=== PATIENT | female | born 1960 | race Caucasian/White ===

== ENCOUNTER 2017-04-25 21:32 | Observation (INO) | payer OTHER ==
[~2017-04-25] VITALS: Ht 167.6 cm; Wt 71.1 kg
[~2017-04-25 21:32] MED LIST: BISAC-EVAC10 MG PR; BISACODYL5 MG PO; BUTALB-APAP-CA1 EACH PO; DOCUSATE SODIU100 MG PO; FERROUS SULFAT325 MG PO; FLEXERIL10 MG PO; MAG-AL PLUS SUS30 ML PO; NEURONTIN800 MG PO; SENNA8.6 MG PO; VALIUM10 MG PO
[2017-04-25 22:35] LABS: MCH 31.8 PG (29.0-34.0); MCHC 36.4 G/DL (30.0-36.0); MCV 87.5 FL (83-99); MEAN PLAT.VOLUME 8.6 uM^3 (9.5-12.4); PLATELET COUNT 263 K/uL (156-360); RBC DIS.WIDTH-CV 12.1 % (11.8-14.6); RBC DIS.WIDTH-SD 38.6 % (39-53); RED BLOOD COUNT 3.77 M/uL (3.80-5.20); WHITE BLOOD COUNT 5.9 K/uL (4.1-10.2)
[2017-04-25 22:50] LABS: CHLORIDE 80 mEq/L (99-109); POTASSIUM 2.9 mEq/L (3.7-5.4); SODIUM 122 mEq/L (136-147)
[2017-04-25 22:52] LABS: GLUCOSE 110 mg/dL (70-99)
[2017-04-25 22:53] LABS: ANION GAP 10 MEQ/L (2-14)
[2017-04-25 22:56] LABS: GFR ESTIMATE (CALCULATED) > 59 mL/min/; UREA NITROGEN (BUN) 4 mg/dL (9-23)
[2017-04-26 00:31] LABS: ADD MIUA? YES; BILIRUBIN NEGATIVE; BLOOD NEGATIVE; COLOR STRAW ((YELLOW)); GLUCOSE (STRIP) NEGATIVE; KETONES NEGATIVE; LEUKOCYTES TRACE; NITRITE NEGATIVE; PROTEIN (STRIP) NEGATIVE; SPECIFIC GRAVITY 1.002 (1.000-1.030); UROBILINOGEN 0.2 MG/DL (0.2-1.0)
[2017-04-26 00:37] LABS: MAGNESIUM 1.9 mg/dL (1.3-2.7)
[2017-04-26 00:44] LABS: CREATINE KINASE 169 IU/L (1-294)
[2017-04-26 00:48] LABS: BACTERIA NONE SEEN /HPF; EPITHELIAL CELLS RARE /HPF; MUCUS NONE SEEN /LPF; RED BLOOD CELLS NONE SEEN /HPF (0-5); UCUL ADDED? NO
[2017-04-26 01:48] LABS: AMPHETAMINE NEGATIVE (500 ng/mL); BARBITURATES NEGATIVE (200 ng/mL); BENZODIAZEPINES PRESUMPTIVE POSITIVE (150 ng/mL); COCAINE PRESUMPTIVE POSITIVE (150 ng/mL); INTERNAL CONTROLS VALID? YES; METHADONE NEGATIVE (200 ng/mL); METHAMPHETAMINE NEGATIVE (500 ng/mL); OPIATES (MORPHINE) NEGATIVE (100 ng/mL); OXYCODONE NEGATIVE (100 ng/mL); PHENCYCLIDINE NEGATIVE (25 ng/mL); PROPOXYPHENE NEGATIVE (300 ng/mL); THC CANNABINOIDS NEGATIVE (50 ng/mL); TRICYCLIC ANTIDEPRESSANTS NEGATIVE (300 ng/mL)
[2017-04-26 01:49] LABS: ADD MEDTOX COMMENT Y
[2017-04-26 02:23] LABS: SERUM ETHYL ALCOHOL < 10 mg/dL
[2017-04-26 05:15] VITALS: BP 97/56
[2017-04-26 05:24] LABS: BENZODIAZEPINES, URINE SCREEN POSITIVE (200 ng/mL)
[2017-04-26 07:14] LABS: HEMATOCRIT 29.9 % (36.0-46.0); MCH 31.9 PG (29.0-34.0); MCHC 36.1 G/DL (30.0-36.0); MCV 88.2 FL (83-99); MEAN PLAT.VOLUME 8.9 uM^3 (9.5-12.4); PLATELET COUNT 247 K/uL (156-360); RBC DIS.WIDTH-CV 12.2 % (11.8-14.6); RBC DIS.WIDTH-SD 39.5 % (39-53); RED BLOOD COUNT 3.39 M/uL (3.80-5.20); WHITE BLOOD COUNT 4.7 K/uL (4.1-10.2)
[2017-04-26 07:34] LABS: ANION GAP 8 MEQ/L (2-14); CHLORIDE 87 MEQ/L (99-109); GFR ESTIMATE (CALCULATED) > 59 mL/min/; GLUCOSE 115 mg/dL (70-99); POTASSIUM 2.8 MEQ/L (3.7-5.4); SAMPLE HEMOLYSIS CHECK 0; SAMPLE ICTERIC CHECK 0; SAMPLE LIPEMIA CHECK 0; SODIUM 125 MEQ/L (136-147); UREA NITROGEN (BUN) 3 mg/dL (9-23)
[2017-04-26 07:37] LABS: ALKALINE PHOSPHATASE 53 IU/L (3-129); ANION GAP 8 MEQ/L (2-14); CHLORIDE 88 MEQ/L (99-109); GFR ESTIMATE (CALCULATED) > 59 mL/min/; GLUCOSE 115 mg/dL (70-99); POTASSIUM 2.8 MEQ/L (3.7-5.4); SAMPLE HEMOLYSIS CHECK 0; SAMPLE ICTERIC CHECK 0; SAMPLE LIPEMIA CHECK 0; SODIUM 126 MEQ/L (136-147); TOTAL BILIRUBIN 0.4 MG/DL (0.0-1.0); UREA NITROGEN (BUN) 3 mg/dL (9-23)
[2017-04-26 09:40] VITALS: BP 100/64
[2017-04-26] MEDS ORDERED: CONCERTA36 MG PO (09:52)
[2017-04-26] MEDS ORDERED: SYNTHROID25 MCG PO (09:52)
[2017-04-26 12:03] VITALS: BP 117/80
[2017-04-26 14:45] LABS: HEMATOCRIT 33.1 % (36.0-46.0); MCH 32.2 PG (29.0-34.0); MCV 89.5 FL (83-99); MEAN PLAT.VOLUME 9.2 uM^3 (9.5-12.4); PLATELET COUNT 262 K/uL (156-360); RBC DIS.WIDTH-CV 12.5 % (11.8-14.6); RBC DIS.WIDTH-SD 40.7 % (39-53)
[2017-04-26 15:05] LABS: ANION GAP 11 MEQ/L (2-14); CHLORIDE 89 MEQ/L (99-109); GFR ESTIMATE (CALCULATED) > 59 mL/min/; GLUCOSE 91 mg/dL (70-99); POTASSIUM 3.1 MEQ/L (3.7-5.4); SAMPLE HEMOLYSIS CHECK 0; SAMPLE ICTERIC CHECK 0; SAMPLE LIPEMIA CHECK 0; SODIUM 130 MEQ/L (136-147); UREA NITROGEN (BUN) 3 mg/dL (9-23)
[2017-04-26 15:37] VITALS: BP 92/56
[2017-04-26 19:00] VITALS: BP 95/56
[2017-04-27 04:18] VITALS: BP 82/49
[2017-04-27 07:05] LABS: ANION GAP 5 MEQ/L (2-14); GFR ESTIMATE (CALCULATED) > 59 mL/min/; GLUCOSE 112 mg/dL (70-99); SAMPLE HEMOLYSIS CHECK 0; SAMPLE ICTERIC CHECK 0; SAMPLE LIPEMIA CHECK 0; SODIUM 132 MEQ/L (136-147); UREA NITROGEN (BUN) 7 mg/dL (9-23)
[2017-04-27 07:06] LABS: CHLORIDE 100 MEQ/L (99-109); POTASSIUM 4.9 MEQ/L (3.7-5.4)
[2017-04-27 07:10] LABS: HEMATOCRIT 28.3 % (36.0-46.0); MCH 32.5 PG (29.0-34.0); MCHC 34.6 G/DL (30.0-36.0); MEAN PLAT.VOLUME 9.3 uM^3 (9.5-12.4); PLATELET COUNT 227 K/uL (156-360); RBC DIS.WIDTH-SD 44.6 % (39-53); RED BLOOD COUNT 3.02 M/uL (3.80-5.20)
[2017-04-27 07:12] LABS: MCV 93.7 FL (83-99)
[2017-04-27 08:30] VITALS: BP 103/62
[2017-04-27] MEDS ORDERED: ENDOCET 5-3251 EACH PO (12:05)
[2017-04-27] MEDS ORDERED: LIDOCAINE700 MG TD (12:05)
[2017-04-27 15:22] VITALS: BP 93/51
[2017-04-27 19:30] VITALS: BP 100/60
[2017-04-27 19:48] LABS: APPEARANCE CLEAR, COLORLESS; RED CELL AREA COUNTED 18; RED CELL COUNT 0 /MM^3 (0-1); RED CELL DILUTION 1; WBC AREA COUNTED 18; WBC DILUTION 1; WHITE CELL COUNT 7 /MM^3 (0-5); WHITE CELL RAW COUNT 12
[2017-04-27 20:02] LABS: CSF EOSINOPHILS 0 % (0-25); MONO RAW COUNT 25; MONONUCLEAR WBC'S 100 % (50-90); POLYNUCLEAR WBC'S 0 % (0-3)
[2017-04-27 23:19] VITALS: BP 110/71
[2017-04-28 03:24] VITALS: BP 90/50
[2017-04-28 05:40] VITALS: BP 121/72
[2017-04-28 09:35] VITALS: BP 111/58
[2017-04-28 11:22] VITALS: BP 109/64
[2017-04-28 15:50] VITALS: BP 121/78
[2017-04-28 19:10] VITALS: BP 124/77
[2017-04-28 22:52] LABS: POINT-OF-CARE METER ID UU13113831
[2017-04-29] VITALS (8 sets, daily range): BP systolic 95–148; BP diastolic 54–88
[2017-04-29 06:26] LABS: HEMATOCRIT 32.4 % (36.0-46.0); MCH 31.7 PG (29.0-34.0); MCHC 33.3 G/DL (30.0-36.0); MEAN PLAT.VOLUME 9.2 uM^3 (9.5-12.4); PLATELET COUNT 239 K/uL (156-360); RBC DIS.WIDTH-CV 13.1 % (11.8-14.6); RBC DIS.WIDTH-SD 45.1 % (39-53); RED BLOOD COUNT 3.41 M/uL (3.80-5.20); WHITE BLOOD COUNT 4.5 K/uL (4.1-10.2)
[2017-04-29 07:35] LABS: ANION GAP 7 MEQ/L (2-14); CHLORIDE 101 MEQ/L (99-109); GFR ESTIMATE (CALCULATED) > 59 mL/min/; GLUCOSE 96 mg/dL (70-99); POTASSIUM 5.2 MEQ/L (3.7-5.4); SAMPLE HEMOLYSIS CHECK 2; SAMPLE ICTERIC CHECK 0; SAMPLE LIPEMIA CHECK 0; SODIUM 136 MEQ/L (136-147); UREA NITROGEN (BUN) 8 mg/dL (9-23)
[2017-04-30 03:31] VITALS: BP 111/59
[2017-04-30 07:45] VITALS: BP 132/85
[2017-04-30 11:34] VITALS: BP 136/77
[2017-04-30] MEDS ORDERED: IBUPROFEN800 MG PO (11:47)
[2017-04-30 15:30] VITALS: BP 155/91
[2017-04-30] MEDS ORDERED: ENDOCET 5-3251 EACH PO (17:08)
[2017-04-30] MEDS ORDERED: LIDOCAINE700 MG TD (17:08)
[2017-05-01 22:11] LABS: Albumin, Serum 3.4 g/dL (3.5-4.9); Synthesis Rate IgG, CSF -1.2 mg/24 h (-9.9-3.3)
== END 2017-04-30 17:58 | disposition home or self-care (01) ==
LOC: EME 21:32 → EDOF 04-26 04:25 → 5WEST 04-26 04:25 → EDOF 04-26 04:25 → 5WEST 04-26 05:00
PROVIDERS: Emergency Medicine; Internal Medicine; Nurse Practitioner Adult Health; Specialist
PROC: 009U3ZX Drainage of Spinal Canal, Percutaneous Approach, Diagnostic (ICD-10-PCS; principal; 2017-04-27)
DX: M51.36 Other intervertebral disc degeneration, lumbar region (principal); G89.29 Other chronic pain; R33.9 Retention of urine, unspecified; R10.9 Unspecified abdominal pain; E87.1 Hypo-osmolality and hyponatremia; E87.6 Hypokalemia; M79.7 Fibromyalgia; G43.909 Migraine, unspecified, not intractable, without status migrainosus; F41.9 Anxiety disorder, unspecified; F32.9 Major depressive disorder, single episode, unspecified; G40.909 Epilepsy, unspecified, not intractable, without status epilepticus; R47.81 Slurred speech; R32 Unspecified urinary incontinence; Z87.820 Personal history of traumatic brain injury; K59.00 Constipation, unspecified
CPT/HCPCS: 70551; 72132; 72148; 72157; 74177; 80048; 80048 91; 80053; 81003; 82550; 82945; 82948; 83735; 83873 90; 83916 90; 83930; 83935; 84100; 84157; 84300; 84999; 85027; 88108; 89051; 93005; 97530 GO; 99281; 99285; G0378; G0480; G8978 GP CK; G8979 GP CI; G8980 GP CK; G8987 CK; G8988 CI; G8989 CJ; J1200; J1644; J1885; J2270; J2405; J2765; J2930; J3475; J3480; J7030; J7040